=== PATIENT | male | born 2000 | race Caucasian/White ===

== ENCOUNTER 2025-01-20 18:27 | Emergency (ER) | payer OTHER ==
[~2025-01-20] VITALS: Wt 102.1 kg
[2025-01-20 19:06] LABS: BASO % 0.6 % (0.0-1.0); EOS # 0.3 10*3/uL (0.0-0.4); EOS % 3.8 % (1.0-4.0); HEMATOCRIT 44.7 % (42.0-52.0); MEAN CELL VOLUME 93.3 fl (80.0-94.0); MEAN CORPUSCULAR HGB 31.3 pg (27.0-31.0); MEAN CORPUSCULAR HGB CONC 33.6 g/dl (33.0-37.0); MEAN PLATELET VOLUME 9.7 fl (9.6-12.3); MONO # 0.7 10*3/uL (0.1-1.0); MONO % 9.3 % (3.0-9.0); NEUT # 4.8 10*3/uL (2.3-7.9); NEUT % 66.3 % (47.0-73.0); PLATELET COUNT AUTOMATED 322 10*3/uL (130-400); RED BLOOD COUNT 4.79 10*6/uL (4.50-5.90); RED CELL DISTRI WIDTH 12.2 % (0-14.5); WHITE BLOOD COUNT 7.2 10*3/uL (4.8-10.8)
[2025-01-20 19:27] LABS: ACT PARTIAL THROMBO TIME 26.5 SECONDS (20.0-32.1)
[2025-01-20 19:28] LABS: ALKALINE PHOSPHATASE 99 U/L (46-116); BUN 13 mg/dl (9-23); CHLORIDE 106 mmol/L (98-107); LIPASE 39 U/L (12-53); POTASSIUM 3.7 mmol/L (3.4-5.1); SGPT/ALT 22 U/L (5-49); TOTAL PROTEIN 7.8 gm/dL (6.0-8.0)
[2025-01-20] MEDS ORDERED: MELOXICAM15 MG PO (21:13)
[2025-01-20] MEDS ORDERED: Acetaminophen/Oxycodone 5 MG/325 MG TABLET PO ONE (21:15)
== END 2025-01-20 21:26 | disposition home or self-care (01) ==
LOC: ED 18:27
PROVIDERS: Internal Medicine
DX: S02.2XXA Fracture of nasal bones, initial encounter for closed fracture (principal); M54.50 Low back pain, unspecified; R20.2 Paresthesia of skin; Z79.01 Long term (current) use of anticoagulants; V89.2XXA Person injured in unspecified motor-vehicle accident, traffic, initial encounter; Y93.89 Activity, other specified; Y92.488 Other paved roadways as the place of occurrence of the external cause; Y99.8 Other external cause status